=== PATIENT | female | born 1960 | race Caucasian/White ===

== ENCOUNTER 2016-11-11 11:48 | Emergency (ER) | payer OTHER ==
--- NOTE | 2016-11-11 17:40 | ED CLINICAL REPORT ---
Clinical Report - Physicians/Mid Levels [facility] [address] [place] [address] 11/11/2016 11:51 Patient: JESENIA TRAORE Arrived- By private vehicle. Historian- patient. HISTORY OF PRESENT ILLNESS Chief Complaint: BACK PAIN. Onset- the past several days and it is still present (staying the same). It was abrupt in onset and has been intermittent but is not gone now. Modifying factors. (worsened by movement. Better with rest). It is described as being moderate in degree and in the area of the left upper lumbar spine and right upper lumbar spine. The quality is noted to be sharp. No radiation. No bladder dysfunction, bowel dysfunction, sensory loss or motor loss. Additional history - reports hematuria. No history of IV drug use. No history of cancer. No urinary retention. No fever. Patient denies an injury but injury to the head. No other injury. Similar symptoms previously: Many times. Recent medical care: The patient was seen recently by a health care provider (Outside facility). ( reports diagnosis of kidney stones in the past). REVIEW OF SYSTEMS No fever. All systems otherwise negative, except as recorded above. PAST HISTORY See nurses notes. Medications: None. Allergies: None. SOCIAL HISTORY Never smoker. History of occasional drug use: marijuana. No alcohol use. No recent travel. Is a local resident. FAMILY HISTORY (siblings with polycystic kidney disease). ADDITIONAL NOTES The nursing notes have been reviewed. PHYSICAL EXAM Vital Signs: 11/11/2016 12:08 BP: 159/78. HR: 83. RR: 18. O2 saturation: 100%. Temp: 98.2 F. Pain level now: 7/10. Hypertensive. Oxygen saturation normal. Appearance: Alert. No acute distress. HEENT: Normal external inspection. Eyes: Pupils equal, round and reactive to light. ENT: Ears normal. Pharynx normal. Neck: Normal inspection. Neck nontender. Painless ROM. No vertebral tenderness. No meningeal signs. CVS: Heart sounds normal. Pulses normal. Respiratory: No respiratory distress. Breath sounds normal. Abdomen: No visible injury. Soft and nontender. Bowel sounds normal. No organomegaly. No mass. Back: Normal inspection. No tenderness. Painless ROM. Mild soft tissue tenderness in the right upper and left upper lumbar area. No vertebral point tenderness or CVA tenderness. Skin: Skin warm and dry. Normal skin color. No rash. Normal skin turgor. Extremities: Extremities exhibit normal ROM. Extremities nontender. Neuro: Oriented X 3. Mood/affect normal. No motor deficit. LABS, X-RAYS, AND EKG CT Abdomen - Pelvis: PROCEDURE: CT ABDOMEN/PELVIS W/O CONTRAST INDICATION: FLANK PAIN MID BACK TECHNIQUE: Axial CT images were obtained through the abdomen and pelvis without IV contrast. Coronal and sagittal reformations were created. COMPARISON: None. FINDINGS: There are innumerable cysts of varying sizes arising from each kidney, both intraparenchymal and exophytic. Cysts demonstrate varying densities. The largest on the right kidney measures 5.0 cm. The largest on the left kidney measures about 2.6 cm. There are occasional parenchymal calcifications scattered in each kidney, likely associated with cyst neumann. There is a 4 mm nonobstructing right lower pole collecting system calcification. No other definite collecting system calcifications are present. No hydronephrosis or hydroureter. No perinephric inflammatory changes. Both lobes of the liver also demonstrate innumerable cysts of varying sizes, the largest is central within the right lobe and measures about 2.9 cm. Clear lung bases. Normal sized heart. No hiatal hernia. The unenhanced appearance of the gallbladder, adrenal glands, pancreas and spleen is normal. The abdominal aorta is normal in its caliber with mild atherosclerosis. There are no suspicious calcifications, retroperitoneal adenopathy or masses. The stomach, upper bowel loops, and mesentery are normal. Intact anterior abdominal wall. No free fluid or inflammation. The unenhanced appearance of the uterus, ovaries, urinary bladder, pelvic vessels, and pelvic bowel loops is normal. Normal appendix. No suspicious calcifications, free pelvic fluid or mass. There is slight superior endplate compression and sclerosis involving T11, T12, L1, and L2. Mild wedge deformity of T11 and T12. Moderate degenerative disc height loss and vacuum phenomenon L4-5. IMPRESSION: 1. 4 mm nonobstructing right intrarenal lower pole calculus. 2. Polycystic kidney and liver disease. 3. 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 Study type: renal stone evaluation. Abdomen - pelvic CT performed without contrast. The study was independently viewed by me, interpreted by the radiologist and discussed with the radiologist. Laboratory Tests: UA-Culture if indicated: (VICTOR MANUEL: 11/11/2016 12:07) ( [id number] 11/11/2016 12:47) Final results Test Result Flag Units (Reference) URINE COLOR YELLOW URINE APPEARANCE CLEAR URINE GLUCOSE NEGATIVE (NEGATIVE) URINE BILIRUBIN NEGATIVE (NEGATIVE) URINE KETONE NEGATIVE (NEGATIVE) URINE SPECIFIC GRAVITY <= 1.005 L (1.010-1.030) URINE PH 5.5 (5.0-8.0) URINE PROTEIN NEGATIVE (NEGATIVE) URINE UROBILINOGEN 0.2 EU/dL (0.2-1.0) URINE NITRITE NEGATIVE (NEGATIVE) URINE BLOOD NEGATIVE (NEGATIVE) URINE LEUK ESTERASE NEGATIVE (NEGATIVE) URINE RBC 1-3 rbc/hpf (0-1) URINE WBC NONE SEEN wbc/hpf (0-1) URINE EPITHELIAL CELLS 0-1 EPI/hpf (0-5) URINE BACTERIA NONE SEEN (NONE SEEN) URINE COMMENT CULT NOT INDICATED URINE CULTURES ARE SET-UP BASED ON THE FOLLOWING CRITERIA:POSITIVE NITRITEPOSITIVE LEUKOCYTE ESTERASEGREATER THAN 10 WHITE BLOOD CELLSMODERATE (2+) OR GREATER BACTERIA . PROGRESS AND PROCEDURES Course of Care: the patient is a pleasant 56-year-old femalewith no prior past medical history presenting for evaluation of lower back pain primarily in the upper lumbar region. The patient appears nontoxic and is in no acute distress. The patient reports a history of kidney stones. Because of the patient's history, we will order CT scan of the patientfor evaluation of stones. Symptoms appear to be consistent with this. Discussed the patient workup and plan of care. Patient is agreeable to workup and treatment. Workup was markable for polycystic kidney disease. Patient does have a 4 mm nonobstructing right intrarenal lower pole calculus. This does not appear to be the source of the patient's pain. Patient also is noted to have mild compression fractures of T11 and T12 Do not appear acute. I discussed with the patient possibility of these entities causing the patient's pain Had long discussion with the patient in regards to polycystic kidney disease. 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 Also recommended patient follow up with her primary care Dr. Do not feel patient needs to be admitted to the hospital require further emergency department workup/evaluation. No other abnormalities noted. Kidney function is noted be adequate. Patient is nontoxic and is in no acute distress. Do not feel this is dissecting aortic aneurysm oracute appendicitis. Patient does not have a surgical abdomen however does need close follow-up for her polycystic kidney disease. Disposition: Discharged. Condition: good. CLINICAL IMPRESSION 11/11/2016 16:09 BP: 156/82. HR: 60. RR: 14. O2 saturation: 100%. Temp: 98.1 F. Hypertensive. Oxygen saturation normal. Essential hypertension. Acute lumbar back pain. (acute). polycystic kidney disease. INSTRUCTIONS Warnings: GENERAL WARNINGS: Return or contact your physician immediately if your condition worsens or changes unexpectedly, if not improving as expected, or if other problems arise. SPECIFICALLY, return if you develop weakness, numbness, tingling, pain or incontinence. Prescription Medications: Percocet 5 mg/325 mg: take 1-2 tablets orally every 6 hours as needed for pain. Dispense fifteen (15). No refill. Substitution is permissible. Follow-up: Return to the emergency department as needed. Follow up with your doctor in three days. Reason for referral: recheck today's concerns. Summary of care provided to patient via paper. Screening today revealed the patient's blood pressure to be in the normal range. The patient should follow up with a primary care provider for blood pressure management. Understanding of the discharge instructions verbalized by patient. (Electronically signed by Layo Vuong Dr. 11/15/2016 3:24) Addenda for JESENIA TRAORE VisitID: [id number] Date: 11/11/2016 11/11/2016 19:19 Pt called stating that she was discharged home with IV. Pt felt comfortable removing IV at home. IV was removed while on phone with Mónica. Pt reported the IV was removed successfully. Pt states dressing was applied and there was no bleeding. Pt was advised to leave dressing on until tomorrow morning. (Electronically signed by Elizabeth Grigsby R.N. 11/11/2016 19:19)
--- NOTE | 2016-11-11 17:40 | ED ORDER SUMMARY ---
..... Patient: JESENIA TRAORE OrderSheet [facility] VisitID: [id number] [place] [address] 56y, F Registration Date/Time: 11/11/2016 ORDER SHEET Weight: 63.5 kg (stated) Allergies: None GENERAL ORDERS: UA-Culture if indicated Urgent (12:30 11/11/2016 Benigno R.NCaesar per protocol) (Ack 12:33 VAHIDoerpatricia) (12:33 VAHIDoerpatricia) CT Abd/Pel wo Cont Urgent (12:53 11/11/2016 Rowan Torres) (Ack 13:18 VAHIDoeteo) (16:09 JBmiley R.N.) CBC w Diff Urgent (12:53 11/11/2016 Rowan Torres) (13:04 JBmiley R.N.) CMP Urgent (12:53 11/11/2016 Rowan Torres) (13:04 JBbelemdley R.N.) UA-Culture if indicated Urgent (12:53 11/11/2016 Rowan Torres) (Cancelled: Duplicate Order13:05 Naseem R.NCaesar) Lipase Urgent (12:53 11/11/2016 Rowan Torres) (13:04 JBmiley R.N.) Pulse oximeter (12:53 11/11/2016 Rowan Torres) (Ack 12:54 JBoardley R.N.) (13:04 Concettay R.N.) MEDICATION ORDERS: IV FLUIDS: IV NS : initial bolus 1000 mL (1000 mL/hr), then none - for X1 (NOW) (12:53 11/11/2016 Rowan Torres) (Ack 12:54 SANGITAoardley R.NCaesar) (13:05 Peacedleclarita R.N.) Morphine IV 4 mg (once now, may repeat x 1 in 15 minutes for no change in pain. ) (14:40 11/11/2016 Rowan Torres) (Ack 14:41 JBoardley R.N.) (14:52 Benigno RCaesarNCaesar) ORDER SHEET NOTES: [Electronically signed by Derik Martinez R.N. (11/11/2016)] [Electronically signed by Layo Vuong Dr. (:11/15/2016)] [Electronically locked/signed by Derik Martinez R.N. (11/11/2016)]
--- NOTE | 2016-11-11 17:40 | ED NURSING NOTES ---
Clinical Report - Nurses [facility] [place] [address] 11/11/2016 11:51 Patient: JESENIA TRAORE TRIAGE Triage time 11:58. Acuity: LEVEL 3. --12:03 Gris Joshua R.N. Triage time 12:08. Acuity: LEVEL 3. Chief Complaint: FLANK PAIN (in middle of back). 12:20 11/11/16. Alert. No acute distress. SEPSIS SCREEN: Sepsis Screen: negative. HOMERO COMA SCORE: Homero Coma Scale: 15- eyes open spontaneously (4); best verbal response- oriented x 4 (5); best motor response- obeys commands (6). --12:20 Elizabeth Grigsby R.N. 12:08 11/11/16. BP: 159/78. HR: 83. RR: 18. O2 saturation: 100% on room air. Temp: 98.2 F. Pain level now: 7/10. Patient is smiling. --12:20 Elizabeth Grigsby R.N. Weight: 63.5 kg stated. Height/Length: 57 inches Per Patient. BMI: 30.3. --12:33 Elizabeth Grigsby R.N. Medications None. --17:58 Elizabeth Grigsby R.N. Allergies None. --12:10 Elizabeth Grigsby R.N. History Arrived by private vehicle. Historian: patient. Accompanied by family. --12:03 Gris Joshua R.N. Arrived by private vehicle. Historian: patient. Accompanied by family. Onset. (pt states she has had constant pain since she was diagnosed with kidney stones in August,. she states the pain has worsened in the past 2 days. pt states she is unsure whether the kidney stones were passed.). She has had hematuria (5-6 days ago). Treatment ENVIRONMENTAL STUDIES DEPARTMENT CHAIR: Applied ice. Recently seen at another facility; seen for similar symptoms; CT done. (pt states she was taking naproxen as prescribed, but stopped because "it wasn't helping the pain and was making my stools hard"). PAST MEDICAL HX: Immunizations: up-to-date. Denies current . SOCIAL HX: Never smoker. History of weekly drug use: marijuana. Recently used drugs today. No alcohol use. FALL RISK ASSESSMENT: Fall risk assessment completed. No fall risk identified. NUTRITIONAL RISK ASSESSMENT: The nutritional risk assessment revealed no deficiencies. FUNCTIONAL ASSESSMENT: Functional assessment: no impairments noted. LEARNING NEEDS ASSESSMENT: The learning needs assessment revealed no barriers. SKIN INTEGRITY ASSESSMENT: Skin integrity risk assessment completed. No skin integrity risk identified. --12:20 Elizabeth Grigsby R.N. PROBLEMS: None. --12:11 Elizabeth Grigsby R.N. ADDITIONAL SURGERIES: None. --12:11 Elizabeth Grigsby R.N. Assessment The patient states feels worse (pain has worsened in the last 2 days). --12:20 Elizabeth Grigsby R.N. Interventions ID band on patient. To room. --12:03 Gris Joshua R.N. ID band on patient. To treatment room. --12:20 Elizabeth Grigsby R.N. PHYSICAL ASSESSMENT 12:22 11/11/16. Ambulatory to room. GENERAL / NEURO / PSYCH: Alert. Oriented X 4. Appears in no acute distress. RESPIRATORY: Respirations not labored. GI / : Abdomen soft and nontender. Bowel sounds within normal limits. No vaginal bleeding. No vaginal discharge. SKIN: Skin is warm and dry. --12:22 Elizabeth Grigsby R.N. 12:36 11/11/16. BACK: Vertebral point tenderness over the thoracic spine. ( pt states she had compression fracture at "T12" in August,). --12:37 Elizabeth Grigsby R.N. NURSING PROGRESS NOTES 12:23 11/11/16. Patient gowned. Head of bed elevated. Two patient identifiers checked. Call light placed in reach. Side rails up x 1. Bed placed in lowest position. Brakes of bed on. Patient ready for evaluation- chart flagged and notification provided. --12:23 Elizabeth Grigsby R.N. 12:29 11/11/16. Clean catch urine collected; sample sent to lab for urinalysis. (sent by Gris). --12:29 Elizabeth Grigsby R.N. 13:05 11/11/2016 Site #1 started via IV in the left antecubital space with an 20g angiocath, with aseptic technique and good blood return; one attempt. Blood drawn: rainbow set. Labeled in the presence of the patient and sent to the lab. Saline lock flushed with 10 mL saline. --13:05 Derik Martinez R.N. 13:05 11/11/2016 Started bag #1 1000 mL IV Fluids IV NS (Saline); at 1000 mL/hr over 1 hour(s) via site #1. Allergies verified and confirmed 5 rights. Completed per protocol. --13:05 Derik Martinez R.N. 13:05 11/11/16. BP: 140/73. HR: 72. RR: 18. O2 saturation: 99% on room air. --13:07 Derik Martinez R.N. 13:11/11/16. --13:07 Derik Martinez R.N. 13:11/11/16. Pulse oximeter placed on patient; monitor alarms on. --13:07 Derik Martinez R.N. 13:11/11/16. Patient and family informed about reason for wait and about plan of care. --13:07 Derik Martinez R.N. 13:07 11/11/16. Patient waiting for CT to be done. --13:07 Derik Martinez R.N. 12:45. ( After Pt's SO reported Pt asking for an ice pack, tech gave Pt ice pack for pain relief). --13:31 Emily Degroot 14:03 11/11/2016 IV Fluids IV NS Discontinued: completed. Total amount infused: 1000 mL. IV patency established. IV site checked: no pain, redness, or swelling. IV flushed thoroughly. --14:08 Elizabeth Grigsby R.N. 14:04 11/11/16. Two patient identifiers checked. Call light placed in reach. Side rails up x 2. Bed placed in lowest position. Brakes of bed on. Patient informed about reason for wait and about plan of care. --14:04 Elizabeth Grigsby R.N. 14:48 11/11/16. Patient and family informed about reason for wait and about plan of care. --14:49 Derik Martinez R.N. 14:52 11/11/2016 Morphine IVP 4 mg given over 1 minute(s) via site #1. Allergies verified, confirmed 5 rights and sedative warning given to the patient. IV patency established. IV site checked: no pain, redness, or swelling. IV flushed thoroughly pre- and post-medication administration. IVP given by RN. --14:52 Elizabeth Grigsby R.N. 14:48 11/11/16. Pain level now: 04/29. --14:54 Elizabeth Grigsby R.N. 15:35 11/11/16. Reassessment after medication administered (pt states flank pain has subsided.). She reports no complaints and she has had no adverse reaction. --15:35 Elizabeth Grigsby R.N. 15:30 11/11/16. BP: 158/73 (regular adult cuff) taken on the right arm, via an automated monitor, while sitting. HR: 59. RR: 17. O2 saturation: 99%. Pain level now: 010. --15:35 Elizabeth Grigsby R.N. 03:50. Patient transported to CT. Patient and family informed about reason for wait (CT delayed due to problem with order in [employer] --15:58 Elizabeth Grigsby R.N. 14:48. --14:54 Elizabeth Grigsby R.N. 16:11 11/11/16. --16:11 Derik Martinez R.N. 16:09 11/11/16. BP: 156/82. HR: 60. RR: 14. O2 saturation: 100% on room air. Temp: 98.1 F (oral). --16:11 Derik Martinez R.N. 16:11 11/11/16. --16:11 Derik Martinez R.N. 16:11 11/11/16. Pain level now: 10/30. --16:11 Derik Martinez R.N. 16:11 11/11/16. Patient and family informed about reason for wait and about plan of care. --16:11 Derik Martinez R.N. 16:11 11/11/16. Patient waiting for CT result. --16:11 Derik Martinez R.N. 16:49 11/11/16. Call light placed in reach. Side rails up x 2. Bed placed in lowest position. Brakes of bed on. Patient and family informed about reason for wait and about plan of care. --16:49 Elizabeth Grigsby R.N. DISPOSITION / DISCHARGE 17:50. Departure time: 17:50. Discharge instructions provided and reviewed with the patient and spouse. Reviewed warnings. Reviewed medication(s). Treatments reviewed. Activity restrictions reviewed. Patient and spouse verbalized understanding. Written instructions provided in Georgian. The patient was discharged by the physician. She was discharged home and accompanied by spouse. She left the Emergency Department ambulatory and via private vehicle. Spouse driving. --17:57 Elizabeth Grigsby R.N. 17:53 11/11/16. BP: 173/103. HR: 73. RR: 19. O2 saturation: 99%. Temp: unable to obtain. Pain level now: 10/30. --17:57 Elizabeth Grigsby R.N. Locked/Released at 11/11/2016 19:27 by Derik Martinez R.N.
--- NOTE | 2016-11-11 17:40 | ED ORDER SUMMARY ---
..... Patient: JESENIA TRAORE OrderSheet [facility] VisitID: [id number] [place] [address] 56y, F Registration Date/Time: 11/11/2016 ORDER SHEET Weight: 63.5 kg (stated) Allergies: None GENERAL ORDERS: UA-Culture if indicated Urgent (12:30 11/11/2016 Benigno R.NCaesar per protocol) (Ack 12:33 VAHIDoerpatricia) (12:33 VAHIDoerpatricia) CT Abd/Pel wo Cont Urgent (12:53 11/11/2016 Rowan Torres) (Ack 13:18 VAHIDoeteo) (16:09 JBmiley R.N.) CBC w Diff Urgent (12:53 11/11/2016 Rowan Torres) (13:04 JBmiley R.N.) CMP Urgent (12:53 11/11/2016 Rowan Torres) (13:04 JBbelemdley R.N.) UA-Culture if indicated Urgent (12:53 11/11/2016 Rowan Torres) (Cancelled: Duplicate Order13:05 Naseem R.NCaesar) Lipase Urgent (12:53 11/11/2016 Rowan Torres) (13:04 JBmiley R.N.) Pulse oximeter (12:53 11/11/2016 Rowan Torres) (Ack 12:54 JBoardley R.N.) (13:04 Concettay R.N.) MEDICATION ORDERS: IV FLUIDS: IV NS : initial bolus 1000 mL (1000 mL/hr), then none - for X1 (NOW) (12:53 11/11/2016 Rowan Torres) (Ack 12:54 SANGITAoardley R.NCaesar) (13:05 Peacedleclarita R.N.) Morphine IV 4 mg (once now, may repeat x 1 in 15 minutes for no change in pain. ) (14:40 11/11/2016 Rowan Torres) (Ack 14:41 JBoardley R.N.) (14:52 Benigno RCaesarNCaesar) ORDER SHEET NOTES: [Electronically signed by Derik Martinez R.N. (11/11/2016)] [Electronically signed by Layo Vuong Dr. (:11/15/2016)] [Electronically locked/signed by Derik Martinez R.N. (11/11/2016)]
--- NOTE | 2016-11-12 16:03 | DIAGNOSTIC IMAGING REPORT ---
PROCEDURE: CT ABDOMEN/PELVIS W/O CONTRAST INDICATION: FLANK PAIN MID BACK TECHNIQUE: Axial CT images were obtained through the abdomen and pelvis without IV contrast. Coronal and sagittal reformations were created. COMPARISON: None. FINDINGS: There are innumerable cysts of varying sizes arising from each kidney, both intraparenchymal and exophytic. Cysts demonstrate varying densities. The largest on the right kidney measures 5.0 cm. The largest on the left kidney measures about 2.6 cm. There are occasional parenchymal calcifications scattered in each kidney, likely associated with cyst neumann. There is a 4 mm nonobstructing right lower pole collecting system calcification. No other definite collecting system calcifications are present. No hydronephrosis or hydroureter. No perinephric inflammatory changes. Both lobes of the liver also demonstrate innumerable cysts of varying sizes, the largest is central within the right lobe and measures about 2.9 cm. Clear lung bases. Normal sized heart. No hiatal hernia. The unenhanced appearance of the gallbladder, adrenal glands, pancreas and spleen is normal. The abdominal aorta is normal in its caliber with mild atherosclerosis. There are no suspicious calcifications, retroperitoneal adenopathy or masses. The stomach, upper bowel loops, and mesentery are normal. Intact anterior abdominal wall. No free fluid or inflammation. The unenhanced appearance of the uterus, ovaries, urinary bladder, pelvic vessels, and pelvic bowel loops is normal. Normal appendix. No suspicious calcifications, free pelvic fluid or mass. There is slight superior endplate compression and sclerosis involving T11, T12, L1, and L2. Mild wedge deformity of T11 and T12. Moderate degenerative disc height loss and vacuum phenomenon L4-5. IMPRESSION: 1. 4 mm nonobstructing right intrarenal lower pole calculus. 2. Polycystic kidney and liver disease. 3. 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 4. Discussed with Dr. Vuong in the emergency room. All CT scans at this facility use dose modulation, iterative reconstruction, and/or weight-based dosing when appropriate to reduce radiation dose to as low as reasonably achievable.
--- NOTE | 2016-11-15 03:24 | ED DISCHARGE INSTRUCTIONS ---
Patient: JESENIA TRAORE General Instructions [facility] VisitID: [id number] [place] [address] 56y, F Registration Date/Time: 11/11/2016 11/11/2016 16:09 BP: 156/82. HR: 60. RR: 14. O2 saturation: 100%. Temp: 98.1 F. Hypertensive. Oxygen saturation normal. Essential hypertension. Acute lumbar back pain. (acute). polycystic kidney disease. INSTRUCTIONS Warnings: GENERAL WARNINGS: Return or contact your physician immediately if your condition worsens or changes unexpectedly, if not improving as expected, or if other problems arise. SPECIFICALLY, return if you develop weakness, numbness, tingling, pain or incontinence. Prescription Medications: Percocet 5 mg/325 mg: take 1-2 tablets orally every 6 hours as needed for pain. Dispense fifteen (15). No refill. Substitution is permissible. Follow-up: Return to the emergency department as needed. Follow up with your doctor in three days. Reason for referral: recheck today's concerns. Summary of care provided to patient via paper. Screening today revealed the patient's blood pressure to be in the normal range. The patient should follow up with a primary care provider for blood pressure management. Understanding of the discharge instructions verbalized by patient. ADDITIONAL INFORMATION Back Pain [Acute Or Chronic] Back pain is usually caused by an injury to the muscles or ligaments of the spine. Sometimes the disks that separate each bone in the spine may bulge and cause pain by pressing on a nearby nerve. Back pain may also appear after a sudden twisting/bending force (such as in a car accident), after a simple awkward movement, or lifting something heavy with poor body positioning. In either case, muscle spasm is often present and adds to the pain. Acute back pain usually gets better in one to two weeks. Back pain related to disk disease, arthritis in the spinal joints or spinal stenosis (narrowing of the spinal canal) can become chronic and last for months or years. Unless you had a physical injury (for example, a car accident or fall) X-rays are usually not ordered for the initial evaluation of back pain. If pain continues and does not respond to medical treatment, x-rays and other tests may be performed at a later time. Home Care: You may need to stay in bed the first few days. But, as soon as possible, begin sitting or walking to avoid problems with prolonged bed rest (muscle weakness, worsening back stiffness and pain, blood clots in the legs). When in bed, try to find a position of comfort. A firm mattress is best. Try lying flat on your back with pillows under your knees. You can also try lying on your side with your knees bent up towards your chest and a pillow between your knees. Avoid prolonged sitting. This puts more stress on the lower back than standing or walking. During the first two days after injury, apply an ICE PACK to the painful area for 20 minutes every 2-4 hours. This will reduce swelling and pain. HEAT (hot shower, hot bath or heating pad) works well for muscle spasm. You can start with ice, then switch to heat after two days. Some patients feel best alternating ice and heat treatments. Use the one method that feels the best to you. You may use acetaminophen (Tylenol) or ibuprofen (Motrin, Advil) to control pain, unless another pain medicine was prescribed. [NOTE: If you have chronic liver or kidney disease or ever had a stomach ulcer or GI bleeding, talk with your doctor before using these medicines.] Be aware of safe lifting methods and do not lift anything over 15 pounds until all the pain is gone. Follow Up with your doctor or this facility if your symptoms do not start to improve after one week. Physical therapy may be needed. [NOTE: If X-rays were taken, they will be reviewed by a radiologist. You will be notified of any new findings that may affect your care.] Get Prompt Medical Attention if any of the following occur: Pain becomes worse or spreads to your legs Weakness or numbness in one or both legs Loss of bowel or bladder control Numbness in the groin or genital area High Blood Pressure -- To Be Confirmed [No Tx] Your blood pressure was higher today than normal. Sometimes anxiety or pain can cause a temporary rise in blood pressure that later returns to normal. If your blood pressure is high on one measurement, this does not mean that you have hypertension (a chronic illness). However, you must have your blood pressure measured again within the next few days to find out if its still high. A normal blood pressure is 120/80 or less. The first (top) number is the "systolic" pressure. The second (bottom) number is the "diastolic" pressure. Hypertension exists when either the top number is 140 or higher, OR the bottom number is 90 or higher on repeated measurements. Blood pressure in the range of 120-140 (systolic) or 80-89 (diastolic) is considered "pre-hypertension". This means your are at risk for getting hypertension. You should have regular blood pressure checks to be sure your blood pressure is not rising. Home Care: Measure your blood pressure on 3 different days and write down the results. This can be done at your doctor's office or this facility. Some pharmacies and grocery stores offer automated blood pressure machines for your use. Follow Up: If your blood pressure is "high" (over 120/80) on 2 out of 3 days, you will need to follow up with your doctor for further evaluation and treatment. DO NOT PUT THIS OFF! Untreated high blood pressure increases the risk for heart attack, also known as acute myocardial infarction, or AMI, and stroke. It is a treatable condition. Get Prompt Medical Attention if any of the following occur: Chest pain or shortness of breath Severe headache Throbbing or rushing sound in the ears Nosebleed Sudden severe abdominal pain Extreme drowsiness, confusion or fainting Dizziness or vertigo (dizziness with spinning sensation) Weakness of an arm or leg or one side of the face Difficulty with speech or vision Oxycodone Hydrochloride, Acetaminophen Oral tablet What is this medicine? ACETAMINOPHEN; OXYCODONE (a set a YONATAN debora fen; ox i KOE done) is a pain reliever. It is used to treat mild to moderate pain. How should I use this medicine? Take this medicine by mouth with a full glass of water. Follow the directions on the prescription label. Take your medicine at regular intervals. Do not take your medicine more often than directed. Talk to your automatic packer operator regarding the use of this medicine in children. Special care may be needed. Patients over 65 years old may have a stronger reaction and need a smaller dose. What side effects may I notice from receiving this medicine? Side effects that you should report to your doctor or health career placement specialist as soon as possible: allergic reactions like skin rash, itching or hives, swelling of the face, lips, or tongue breathing difficulties, wheezing confusion light headedness or fainting spells severe stomach pain yellowing of the skin or the whites of the eyes Side effects that usually do not require medical attention (report to your doctor or health career placement specialist if they continue or are bothersome): dizziness drowsiness nausea vomiting What may interact with this medicine? alcohol antihistamines barbiturates like amobarbital, butalbital, butabarbital, methohexital, pentobarbital, phenobarbital, thiopental, and secobarbital benztropine drugs for bladder problems like solifenacin, trospium, oxybutynin, tolterodine, hyoscyamine, and methscopolamine drugs for breathing problems like ipratropium and tiotropium drugs for certain stomach or intestine problems like propantheline, homatropine methylbromide, glycopyrrolate, atropine, belladonna, and dicyclomine general anesthetics like etomidate, ketamine, nitrous oxide, propofol, desflurane, enflurane, halothane, isoflurane, and sevoflurane medicines for depression, anxiety, or psychotic disturbances medicines for sleep muscle relaxants naltrexone narcotic medicines (opiates) for pain phenothiazines like perphenazine, thioridazine, chlorpromazine, mesoridazine, fluphenazine, prochlorperazine, promazine, and trifluoperazine scopolamine tramadol trihexyphenidyl What if I miss a dose? If you miss a dose, take it as soon as you can. If it is almost time for your next dose, take only that dose. Do not take double or extra doses. Where should I keep my medicine? Keep out of the reach of children. This medicine can be abused. Keep your medicine in a safe place to protect it from theft. Do not share this medicine with anyone. Selling or giving away this medicine is dangerous and against the law. Store at room temperature between 20 and 25 degrees C (68 and 77 degrees F). Keep container tightly closed. Protect from light. This medicine may cause accidental overdose and if it is taken by other adults, children, or pets. Flush any unused medicine down the toilet to reduce the chance of harm. Do not use the medicine after the expiration date. What should I tell my health care provider before I take this medicine? They need to know if you have any of these conditions: brain tumor Crohn's disease, inflammatory bowel disease, or ulcerative colitis drink more than 3 alcohol containing drinks per day drug abuse or addiction head injury heart or circulation problems kidney disease or problems going to the bathroom liver disease lung disease, asthma, or breathing problems an unusual or allergic reaction to acetaminophen, oxycodone, other opioid analgesics, other medicines, foods, dyes, or preservatives or trying to get breast-feeding What should I watch for while using this medicine? Tell your doctor or health career placement specialist if your pain does not go away, if it gets worse, or if you have new or a different type of pain. You may develop tolerance to the medicine. Tolerance means that you will need a higher dose of the medication for pain relief. Tolerance is normal and is expected if you take this medicine for a long time. Do not suddenly stop taking your medicine because you may develop a severe reaction. Your body becomes used to the medicine. This does NOT mean you are addicted. Addiction is a behavior related to getting and using a drug for a non-medical reason. If you have pain, you have a medical reason to take pain medicine. Your doctor will tell you how much medicine to take. If your doctor wants you to stop the medicine, the dose will be slowly lowered over time to avoid any side effects. You may get drowsy or dizzy. Do not drive, use machinery, or do anything that needs mental alertness until you know how this medicine affects you. Do not stand or sit up quickly, especially if you are an older patient. This reduces the risk of dizzy or fainting spells. Alcohol may interfere with the effect of this medicine. Avoid alcoholic drinks. There are different types of narcotic medicines (opiates) for pain. If you take more than one type at the same time, you may have more side effects. Give your health care provider a list of all medicines you use. Your doctor will tell you how much medicine to take. Do not take more medicine than directed. Call emergency for help if you have problems breathing. The medicine will cause constipation. Try to have a bowel movement at least every 2 to 3 days. If you do not have a bowel movement for 3 days, call your doctor or health career placement specialist. Do not take Tylenol (acetaminophen) or medicines that have acetaminophen with this medicine. Too much acetaminophen can be very dangerous. Many nonprescription medicines contain acetaminophen. Always read the labels carefully to avoid taking more acetaminophen. You have been given the following additional information: Back Pain (Acute Or Chronic) Hypertension, To Be Confirmed Oxycodone Hydrochloride, Acetaminophen Oral tablet (Electronically signed by Layo Vuong Dr. 11/15/2016 3:24)
--- NOTE | 2016-11-15 03:24 | ED MED RECONCILIATION SUMMARY ---
Patient: JESENIA TRAORE Medication Reconciliation Report [facility] VisitID: [id number] [address] [place] [address] 56y, F Registration Date/Time: 11/11/2016 Weight: 63.5 kg Height/Length: 57 in. BMI: 30.3 ALLERGIES: None The patient's Home Medications are listed below: NONE. The source(s) of the original Home Medication information: Not obtained. The following Medications were given to the patient in the Emergency Department: IV NS IV Fluids bolus 0, then 1000 mL/hr, administered: 11/11/2016 1:05:00 PM Morphine [IVP] IVP 4 mg, administered: 11/11/2016 2:52:00 PM The following Medications were prescribed to the patient: Percocet 5 mg/325 mg: take 1-2 tablets orally every 6 hours as needed for pain. Dispense fifteen (15). No refill. Substitution is permissible. -- Layo Vuong Dr.
--- NOTE | 2016-11-15 03:24 | ED MAR SUMMARY ---
..... Medication Administration Record [facility] [address] [place] [address] Patient: JESENIA TRAORE Visit ID: [id number] 56y, F Weight: 63.5 kg Height/Length: 57 in BMI: 30.3 ALLERGIES: None Start 13:05 11/11/2016 Derik Martinez R.N., Stop 14:03 11/11/2016 Elizabeth Grigsby R.N. Medication Administered: IV NS (SALINE), Dose: IV Fluids over 1 hour(s), Rate: 1000 mL/hr, Dispensed: 1000 mL bag, Site: #1 left AC. Medication Ordered: IV NS : initial bolus 1000 mL (1000 mL/hr), then none - for X1 (NOW). Given 14:52 11/11/2016 Elizabeth Grigsby RRobin Medication Administered: MORPHINE [IVP], Dose: 4 mg IVP over 1 minute(s), Site: #1 left AC. Medication Ordered: Morphine IV 4 mg (once now, may repeat x 1 in 15 minutes for no change in pain. ).
--- NOTE | 2016-11-15 03:24 | ED MAR SUMMARY ---
..... Medication Administration Record [facility] [address] [place] [address] Patient: JESENIA TRAORE Visit ID: [id number] 56y, F Weight: 63.5 kg Height/Length: 57 in BMI: 30.3 ALLERGIES: None Start 13:05 11/11/2016 Derik Martinez R.N., Stop 14:03 11/11/2016 Elizabeth Grigsby R.N. Medication Administered: IV NS (SALINE), Dose: IV Fluids over 1 hour(s), Rate: 1000 mL/hr, Dispensed: 1000 mL bag, Site: #1 left AC. Medication Ordered: IV NS : initial bolus 1000 mL (1000 mL/hr), then none - for X1 (NOW). Given 14:52 11/11/2016 Elizabeth Grigsby RRobin Medication Administered: MORPHINE [IVP], Dose: 4 mg IVP over 1 minute(s), Site: #1 left AC. Medication Ordered: Morphine IV 4 mg (once now, may repeat x 1 in 15 minutes for no change in pain. ).
--- NOTE | 2016-11-15 03:24 | ED MED RECONCILIATION SUMMARY ---
Patient: JESENIA TRAORE Medication Reconciliation Report [facility] VisitID: [id number] [address] [place] [address] 56y, F Registration Date/Time: 11/11/2016 Weight: 63.5 kg Height/Length: 57 in. BMI: 30.3 ALLERGIES: None The patient's Home Medications are listed below: NONE. The source(s) of the original Home Medication information: Not obtained. The following Medications were given to the patient in the Emergency Department: IV NS IV Fluids bolus 0, then 1000 mL/hr, administered: 11/11/2016 1:05:00 PM Morphine [IVP] IVP 4 mg, administered: 11/11/2016 2:52:00 PM The following Medications were prescribed to the patient: Percocet 5 mg/325 mg: take 1-2 tablets orally every 6 hours as needed for pain. Dispense fifteen (15). No refill. Substitution is permissible. -- Layo Vuong Dr.
== END 2016-11-11 17:50 | disposition home or self-care (01) ==
LOC: ED SRH 11:48
DX: M54.5 Low back pain (principal); Q61.3 Polycystic kidney, unspecified; I10 Essential (primary) hypertension
CPT/HCPCS: 90004; 90100; 92235; 95059

== ENCOUNTER 2017-01-10 11:59 | Emergency (ER) | payer OTHER ==
--- NOTE | 2017-01-10 14:31 | ED NURSING NOTES ---
Clinical Report - Nurses [place] [address] [place] [address] 01/10/2017 12:00 Patient: JESENIA TRAORE TRIAGE Triage time 12:06. Acuity: LEVEL 3. Chief Complaint: ABDOMINAL PAIN and NAUSEA and CHILLS. Alert. No acute distress. SEPSIS SCREEN: Sepsis Screen. Negative (no infection suspected/documented). MARSHA COMA SCORE: Roberts Coma Scale: 15- eyes open spontaneously (4); best verbal response- oriented x 4 (5); best motor response- obeys commands (6). --12:17 Alda Hinkle R.N. 12:06 01/10/17. BP: 192/87. HR: 54. RR: 18. O2 saturation: 97%. Temp: 97.5 F. Pain level now 6/10. --12:17 Alda Hinkle R.N. Weight: 63.5 kg stated. Height/Length: 57 inches Per Patient. BMI: 30.3. --12:13 Alda Hinkle R.N. Medications Lisinopril Oral 5 mg, at bedtime. --12:15 Alda Hinkle R.N. Vitamin D Oral. --12:16 Alda Hinkle R.N. Percocet Oral, as needed. --12:16 Alda Hinkle R.N. Allergies No Known Drug Allergy. --12:16 Alda Hinkle R.N. History Arrived by private vehicle. Historian: patient. Accompanied by family. Primary physician (Dr. Quiros). Onset. (1130 today). 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 PAST MEDICAL HX: Immunizations: status is unknown. SOCIAL HX: Smoker- current status unknown. Occasional alcohol use. History of drug use: marijuana. (daily). No recent travel. No infectious disease exposure. No known contact with a sick individual. ABUSE ASSESSMENT: Abuse assessment: The patient was asked "Do you feel safe in your home?" and "Has anyone hurt you or threatened to hurt you?". No report of abuse. NUTRITIONAL RISK ASSESSMENT: The nutritional risk assessment revealed no deficiencies. FUNCTIONAL ASSESSMENT: Functional assessment: no impairments noted. LEARNING NEEDS ASSESSMENT: The learning needs assessment revealed no barriers. --12:17 Alda Hinkle R.N. PROBLEMS: Hypertension. Back Pain. --12:16 Alda Hinkle R.N. Polycystic Kidney. Hypercalcemia. --12:17 Alda Hinkle R.N. Interventions ID band on patient. Transported via wheelchair. --12:17 Alda Hinkle R.N. PHYSICAL ASSESSMENT Ambulatory to room. GENERAL / NEURO / PSYCH: Alert. Appears in no acute distress. HEENT: Mucous membranes are pink. RESPIRATORY: Respirations not labored. CVS: Capillary refill less than 2 seconds. GI / : Abdomen soft. Abdominal tenderness in the lower abdomen. SKIN: Skin is warm and dry. --12:17 Alda Hinkle R.N. NURSING PROGRESS NOTES Patient gowned. Head of bed elevated. Two patient identifiers checked. Call light placed in reach. Side rails up x 2. Bed placed in lowest position. Brakes of bed on. Patient ready for evaluation- chart flagged. --12:17 Alda Hinkle R.N. Patient ID band checked for patient name, birthdate and medical record number: patient confirmed. Instructions provided to collect clean catch urine and patient verbalized understanding. Clean catch urine collected with return of yellow-colored clear urine; sample sent to lab for urinalysis. Specimen labeled in the presence of the patient. --12:17 Alda Hinkle R.N. 12:41 01/10/2017 Zofran ODT (Ondansetron) PO 4 mg given. Allergies verified and confirmed 5 rights. --12:41 Alda Hinkle R.N. 13:14 01/10/17. ( Ultrasound at bedside). --13:14 Shea Nichols R.N. 14:32 01/10/2017 Zofran ODT (Ondansetron) PO 4 mg given. Allergies verified and confirmed 5 rights. --14:32 Nena-Elif Nichols R.N. ( pt out in waiting room, s/o standing at doorway- zofran odt brought to pt "I need to go eat to take my pain meds"). --14:33 Elif Vidal R.N. DISPOSITION / DISCHARGE 14:35 01/10/17. RR: 16. Additional comments: d/c v/s deferred due to pt. refused and wanting to "leave now.". --14:38 Alda Hinkle R.N. 14:35. Departure time: 1435. Condition at departure: stable. No learning barriers present. Discharge instructions provided and reviewed with the patient. Reviewed medication(s) side effects, precautions, dosing and course information. Prescription(s) given to the patient. Reviewed referral to family practice for followup. Patient verbalized understanding. Written instructions provided in Frisian. The patient was discharged home and accompanied by food service aide. She left the Emergency Department ambulatory and via private vehicle. Rn Shift Mgr driving. Medication list reviewed and validated. --14:38 Alda Hinkle R.N. Locked/Released at 01/10/2017 14:38 by Alda Hinkle R.N.
--- NOTE | 2017-01-10 14:31 | ED ORDER SUMMARY ---
..... Patient: JESENIA TRAORE OrderSheet [facility] VisitID: [id number] [place] [address] 56y, F Registration Date/Time: 01/10/2017 ORDER SHEET Weight: 63.5 kg (stated) Allergies: No Known Drug Allergy GENERAL ORDERS: US Abdomen Limited (Yes) (right upper quad tenderness wit nausea/vom today) Urgent (12:33 01/10/2017 ABlanchette PA-C) (Ack 12:35 TBergley) (13:39 TBergley) CBC w Diff Urgent (12:34 01/10/2017 ABlanchette PA-C) (Ack 12:35 TBergley) (13:02 TBergley) CMP Urgent (12:34 01/10/2017 ABlanchette PA-C) (Ack 12:35 TBergley) (13:02 TBergley) Amylase Urgent (12:34 01/10/2017 ABlanchette PA-C) (Ack 12:35 TBergley) (13:02 TBergley) Lipase Urgent (12:34 01/10/2017 ABlanchette PA-C) (Ack 12:35 TBergley) (13:02 TBergley) UA-Culture if indicated Urgent (12:46 01/10/2017 ABlanchette PA-C) (Ack 13:01 TBergley) (13:02 TBergley) US Abdomen Complete (No) Urgent (14:17 01/10/2017 TBergley verbal order read back to ABlanchette PA-C) (14:18 TBergley) MEDICATION ORDERS: Zofran ODT PO 4 mg (NOW) (12:34 01/10/2017 ABlanchette PA-C) (12:41 Christina JohnstonNCaesar) Zofran ODT PO 4 mg (NOW) (14:27 01/10/2017 ABlanchette PA-C) (Ack 14:28 Nikita R.N.) (14:32 KPaksenia-Magdalena R.N.) IV FLUIDS: ORDER SHEET NOTES: [Electronically signed by Alda Hinkle R.N. (14:38 01/10/2017)] [Electronically signed by Yolie Us PA-C (20:43 01/10/2017)] [Electronically locked/signed by Alda Hinkle R.N. (14:38 01/10/2017)]
--- NOTE | 2017-01-10 14:31 | ED ORDER SUMMARY ---
..... Patient: JESENIA TRAORE OrderSheet [facility] VisitID: [id number] [place] [address] 56y, F Registration Date/Time: 01/10/2017 ORDER SHEET Weight: 63.5 kg (stated) Allergies: No Known Drug Allergy GENERAL ORDERS: US Abdomen Limited (Yes) (right upper quad tenderness wit nausea/vom today) Urgent (12:33 01/10/2017 ABlanchette PA-C) (Ack 12:35 TBergley) (13:39 TBergley) CBC w Diff Urgent (12:34 01/10/2017 ABlanchette PA-C) (Ack 12:35 TBergley) (13:02 TBergley) CMP Urgent (12:34 01/10/2017 ABlanchette PA-C) (Ack 12:35 TBergley) (13:02 TBergley) Amylase Urgent (12:34 01/10/2017 ABlanchette PA-C) (Ack 12:35 TBergley) (13:02 TBergley) Lipase Urgent (12:34 01/10/2017 ABlanchette PA-C) (Ack 12:35 TBergley) (13:02 TBergley) UA-Culture if indicated Urgent (12:46 01/10/2017 ABlanchette PA-C) (Ack 13:01 TBergley) (13:02 TBergley) US Abdomen Complete (No) Urgent (14:17 01/10/2017 TBergley verbal order read back to ABlanchette PA-C) (14:18 TBergley) MEDICATION ORDERS: Zofran ODT PO 4 mg (NOW) (12:34 01/10/2017 ABlanchette PA-C) (12:41 Christina JohnstonNCaesar) Zofran ODT PO 4 mg (NOW) (14:27 01/10/2017 ABlanchette PA-C) (Ack 14:28 Nikita R.N.) (14:32 KPaksenia-Magdalena R.N.) IV FLUIDS: ORDER SHEET NOTES: [Electronically signed by Alda Hinkle R.N. (14:38 01/10/2017)] [Electronically signed by Yolie Us PA-C (20:43 01/10/2017)] [Electronically locked/signed by Alda Hinkle R.N. (14:38 01/10/2017)]
--- NOTE | 2017-01-10 14:31 | ED CLINICAL REPORT ---
Clinical Report - Physicians/Mid Levels [facility] [address] [place] [address] 01/10/2017 12:00 Patient: JESENIA KELLOGG Time Seen: 1220. Arrived- By private vehicle. Historian- patient. HISTORY OF PRESENT ILLNESS Chief Complaint: VOMITING. This started just prior to arrival started about an hour and a half ago, nausea, with right upper quad pain and is still present. It was abrupt in onset. The patient has had nausea, mild vomiting. The vomiting has occurred only once and mild, colicky abdominal pain. No diarrhea, black stools or bloody stools. The illness is described as mild. Similar symptoms previously: None. Recent medical care: Not recently seen/assessed. REVIEW OF SYSTEMS No fever, difficulty with urination or dark urine. All systems otherwise negative, except as recorded above. PAST HISTORY See nurses notes. Problems: Polycystic Kidney. Hypercalcemia. Hypertension. Back Pain. None. Medications: Percocet Oral, as needed. Vitamin D Oral. Lisinopril Oral 5 mg, at bedtime. Allergies: No Known Drug Allergy. FAMILY HISTORY Negative. ADDITIONAL NOTES The nursing notes have been reviewed with agreement regarding the chief complaint, HPI, ROS, PMH and patient medications and allergies. PHYSICAL EXAM Vital Signs: 01/10/2017 12:06 BP: 192/87. HR: 54. RR: 18. O2 saturation: 97%. Temp: 97.5 F. Have been reviewed. Hypertensive. Appearance: Alert. Oriented X3. No acute distress. Anxious. Appears to be in pain. Eyes: Pupils equal, round and reactive to light. Eyes normal inspection. ENT: Ears normal. Nose normal. Pharynx normal. Neck: Normal inspection. Neck supple. CVS: Normal heart rate and rhythm. Heart sounds normal. Pulses normal. Respiratory: No respiratory distress. Breath sounds normal. Abdomen: Soft. Mild tenderness in the right upper quadrant and right side of the abdomen with guarding present. Positive Bond's sign. No rebound tenderness or obturator or psoas sign present. The bowel sounds are not abnormal. No distention, mass present or organomegaly. Back: Normal inspection. Skin: Skin warm and dry. Normal skin color. No rash. Normal skin turgor. Extremities: No lower extremity edema. Neuro: Oriented X 3. LABS, X-RAYS, AND EKG Abdominal Sonogram: (Name: Jesenia Kellogg : 1960 MR#: [id number] Ordering Provider: ALESSANDRO HALE Exam(s): US ABDOMEN ULTRASOUND-COMPLETE Date of Exam: 01/10/2017 __ PROCEDURE: US ABDOMEN ULTRASOUND-COMPLETE INDICATION: Right abdominal and flank pain. History of polycystic kidney disease. TECHNIQUE: Zarco scale and color Doppler sonographic images of the abdomen were obtained. COMPARISON: Comparison is made to CT abdomen and pelvis on 11/11/2016. FINDINGS: There are multiple small adherent cholesterol polyps of the gallbladder (3 mm). No evidence of mobile gallstones. Common duct is normal (5 mm). Kidneys are large size right 14.0 cm, left 16.4 cm) with multiple cysts (largest right 5.4 cm, largest left 2.8 cm). There are multiple hepatic cysts (largest 3 cm). Spleen (8 cm), pancreas, aorta, and inferior vena cava are normal. IMPRESSION: 1. Multiple adherent cholesterol polyp of the gallbladder. No evidence of mobile gallstones. 2. Enlargement the kidneys secondary to a polycystic kidney disease. No definite evidence of urinary tract obstruction. 4. Associated multiple hepatic cysts. 5. Otherwise negative abdominal ultrasound. 6. Findings discussed with ANGI Davis. Electronically Final signed by:Trent Donahue MD 01/10/2017 3:56:29 PM Technologist: VINITA). The study was independently viewed by me, interpreted by the radiologist and discussed with the radiologist. Laboratory Tests: UA-Culture if indicated: (VICTOR MANUEL: 01/10/2017 12:15) ( [facility] [place] 01/10/2017 13:06) Final results Test Result Flag Units (Reference) URINE COLOR YELLOW URINE APPEARANCE CLEAR URINE GLUCOSE NEGATIVE (NEGATIVE) URINE BILIRUBIN NEGATIVE (NEGATIVE) URINE KETONE NEGATIVE (NEGATIVE) URINE SPECIFIC GRAVITY 1.025 (1.010-1.030) URINE PH 5.0 (5.0-8.0) URINE PROTEIN NEGATIVE (NEGATIVE) URINE UROBILINOGEN 0.2 EU/dL (0.2-1.0) URINE NITRITE NEGATIVE (NEGATIVE) URINE BLOOD 3+ (NEGATIVE) URINE LEUK ESTERASE NEGATIVE (NEGATIVE) URINE RBC 50-75 rbc/hpf (0-1) URINE WBC 1-3 wbc/hpf (0-1) URINE EPITHELIAL CELLS 0-1 EPI/hpf (0-5) URINE BACTERIA TRACE (<1+) (NONE SEEN) URINE COMMENT CULT NOT INDICATED 1+ MUCOUS0-1 HYALINE CASTS/LPFURINE CULTURES ARE SET-UP BASED ON THE FOLLOWING CRITERIA:POSITIVE NITRITEPOSITIVE LEUKOCYTE ESTERASEGREATER THAN 10 WHITE BLOOD CELLSMODERATE (2+) OR GREATER BACTERIA CBC w Diff: (VICTOR MANUEL: 01/10/2017 12:45) ( [facility] 01/10/2017 12:51) Final results Test Result Flag Units (Reference) WHITE BLOOD COUNT 9.6 K/uL (4.5-11.5) RED BLOOD COUNT 5.31 H M/uL (4.00-5.20) HEMOGLOBIN 14.4 gm/dL (12.0-16.0) HEMATOCRIT 44.0 % (36.0-46.0) MEAN CELL VOLUME 83 fL (80-100) MEAN CORPUSCULAR HGB 27 pg (26-34) MEAN CORPUSCULAR HGB CONC 33 g/dL (31-37) RED CELL DISTRIBUTION WIDTH 13.4 % (11.6-14.8) PLATELET COUNT 282 K/uL (150-400) NEUTROPHIL % 74.0 % (50-75) LYMPH % 19.0 L % (25-40) MONO % 5.5 % (3-14) EOSINOPHIL % 1.2 % (0-4) BASOPHIL % 0.3 % (0-2) CMP: (VICTOR MANUEL: 01/10/2017 12:45) ( MsgRcvd 01/10/2017 13:16) Final results Test Result Flag Units (Reference) GLUCOSE 113 H mg/dL (70-110) BUN 13 mg/dL (7-18) CREATININE 0.9 mg/dL (0.6-1.3) Estimated GFR >60 mL/min Estimated GFR- >60 mL/min Note: Persistent reduction over 3 months in eGFR<60 mL/min/1.73 m2 defines CKD. Patients with eGFR values>=60 mL/min/1.73 m2 may also have CKD if evidence ofpersistent proteinuria. Additional information may be foundat www.kidney.org. SODIUM 140 mmol/L (136-145) POTASSIUM 3.8 mmol/L (3.5-5.1) CHLORIDE 103 mmol/L (98-107) CARBON DIOXIDE 28 mmol/L (21-32) CALCIUM 9.8 mg/dL (8.5-10.1) TOTAL PROTEIN 7.3 g/dL (6.4-8.2) ALBUMIN 3.9 g/dL (3.3-5.0) BILIRUBIN, TOTAL 0.3 mg/dL (0.0-1.0) ALKALINE PHOSPHATASE 64 U/L (46-116) AST (SGOT) 14 L U/L (15-37) ALT (SGPT) 24 U/L (12-78) LIPASE 107 U/L (73-393) AMYLASE 43 U/L (25-115) . PROGRESS AND PROCEDURES Course of Care: Patient is stable. Physical exam findings are improved. Symptoms better. CLINICAL IMPRESSION Subacute rotavirus gastroenteritis. No volume depletion. (polycystic kidney disease, with microscopic hematuria). (gallbladder polyp present on ultrasound). INSTRUCTIONS Rest. Take clear liquids only today. Advance diet as tolerated. No alcohol. Do not smoke. Warnings: Further evaluation is necessary in order to conduct further tests. It is very important to follow up with a physician. GENERAL WARNINGS: Return or contact your physician immediately if your condition worsens or changes unexpectedly, if not improving as expected, or if other problems arise. Your Current Medications: CONTINUE TAKING THE FOLLOWING MEDICATIONS: Lisinopril Oral : 5 mg at bedtime. Percocet Oral : prn. Vitamin D Oral. Prescription Medications: Zofran (orally disintegrating tablets) 4 mg: take 1 orally every 6 hours as needed for nausea. Dispense ten (10). No refill. Follow-up: Follow up with your doctor Wednesday if not better. Reason for referral: right upper quadrant pain, polycystic kidney disease, hematuria. Follow up with a tin tie machine operator automatic- as recommended by your primary care physician- if not better. Understanding of the discharge instructions verbalized by patient and family. (Electronically signed by Alessandro Hale PA-C 01/10/2017 20:43)
--- NOTE | 2017-01-10 14:31 | ED NURSING NOTES ---
Clinical Report - Nurses [facility] [address] [place] [address] 01/10/2017 12:00 Patient: JESENIA TRAORE TRIAGE Triage time 12:06. Acuity: LEVEL 3. Chief Complaint: ABDOMINAL PAIN and NAUSEA and CHILLS. Alert. No acute distress. SEPSIS SCREEN: Sepsis Screen. Negative (no infection suspected/documented). MARSHA COMA SCORE: Greer Coma Scale: 15- eyes open spontaneously (4); best verbal response- oriented x 4 (5); best motor response- obeys commands (6). --12:17 Alda Hinkle R.N. 12:06 01/10/17. BP: 192/87. HR: 54. RR: 18. O2 saturation: 97%. Temp: 97.5 F. Pain level now 6/10. --12:17 Alda Hinkle R.N. Weight: 63.5 kg stated. Height/Length: 57 inches Per Patient. BMI: 30.3. --12:13 Alda Hinkle R.N. Medications Lisinopril Oral 5 mg, at bedtime. --12:15 Alda Hinkle R.N. Vitamin D Oral. --12:16 Alda Hinkle R.N. Percocet Oral, as needed. --12:16 Alda Hinkle R.N. Allergies No Known Drug Allergy. --12:16 Alda Hinkle R.N. History Arrived by private vehicle. Historian: patient. Accompanied by family. Primary physician (Dr. Quiros). Onset. (1130 today). Treatment STILL CLEANER TUBE: None. PAST MEDICAL HX: Immunizations: status is unknown. SOCIAL HX: Smoker- current status unknown. Occasional alcohol use. History of drug use: marijuana. (daily). No recent travel. No infectious disease exposure. No known contact with a sick individual. ABUSE ASSESSMENT: Abuse assessment: The patient was asked "Do you feel safe in your home?" and "Has anyone hurt you or threatened to hurt you?". No report of abuse. NUTRITIONAL RISK ASSESSMENT: The nutritional risk assessment revealed no deficiencies. FUNCTIONAL ASSESSMENT: Functional assessment: no impairments noted. LEARNING NEEDS ASSESSMENT: The learning needs assessment revealed no barriers. --12:17 Alda Hinkle R.N. PROBLEMS: Hypertension. Back Pain. --12:16 Alda Hinkle R.N. Polycystic Kidney. Hypercalcemia. --12:17 Alda Hinkle R.N. Interventions ID band on patient. Transported via wheelchair. --12:17 Alda Hinkle R.N. PHYSICAL ASSESSMENT Ambulatory to room. GENERAL / NEURO / PSYCH: Alert. Appears in no acute distress. HEENT: Mucous membranes are pink. RESPIRATORY: Respirations not labored. CVS: Capillary refill less than 2 seconds. GI / : Abdomen soft. Abdominal tenderness in the lower abdomen. SKIN: Skin is warm and dry. --12:17 Alda Hinkle R.N. NURSING PROGRESS NOTES Patient gowned. Head of bed elevated. Two patient identifiers checked. Call light placed in reach. Side rails up x 2. Bed placed in lowest position. Brakes of bed on. Patient ready for evaluation- chart flagged. --12:17 Alda Hinkle R.N. Patient ID band checked for patient name, birthdate and medical record number: patient confirmed. Instructions provided to collect clean catch urine and patient verbalized understanding. Clean catch urine collected with return of yellow-colored clear urine; sample sent to lab for urinalysis. Specimen labeled in the presence of the patient. --12:17 Alda Hinkle R.N. 12:41 01/10/2017 Zofran ODT (Ondansetron) PO 4 mg given. Allergies verified and confirmed 5 rights. --12:41 Alda Hinkle R.N. 13:14 01/10/17. ( Ultrasound at bedside). --13:14 Shea Nichols R.N. 14:32 01/10/2017 Zofran ODT (Ondansetron) PO 4 mg given. Allergies verified and confirmed 5 rights. --14:32 Nena-Elif Nichols R.N. ( pt out in waiting room, s/o standing at doorway- zofran odt brought to pt "I need to go eat to take my pain meds"). --14:33 Elif Vidal R.N. DISPOSITION / DISCHARGE 14:35 01/10/17. RR: 16. Additional comments: d/c v/s deferred due to pt. refused and wanting to "leave now.". --14:38 Alda Hinkle R.N. 14:35. Departure time: 1435. Condition at departure: stable. No learning barriers present. Discharge instructions provided and reviewed with the patient. Reviewed medication(s) side effects, precautions, dosing and course information. Prescription(s) given to the patient. Reviewed referral to family practice for followup. Patient verbalized understanding. Written instructions provided in Amharic. The patient was discharged home and accompanied by welder/fitter. She left the Emergency Department ambulatory and via private vehicle. Banking Representative driving. Medication list reviewed and validated. --14:38 Alda Hinkle R.N. Locked/Released at 01/10/2017 14:38 by Alda Hinkle R.N.
--- NOTE | 2017-01-10 14:31 | ED CLINICAL REPORT ---
Clinical Report - Physicians/Mid Levels [facility] [address] [place] [address] 01/10/2017 12:00 Patient: JESENIA KELLOGG Time Seen: 1220. Arrived- By private vehicle. Historian- patient. HISTORY OF PRESENT ILLNESS Chief Complaint: VOMITING. This started just prior to arrival started about an hour and a half ago, nausea, with right upper quad pain and is still present. It was abrupt in onset. The patient has had nausea, mild vomiting. The vomiting has occurred only once and mild, colicky abdominal pain. No diarrhea, black stools or bloody stools. The illness is described as mild. Similar symptoms previously: None. Recent medical care: Not recently seen/assessed. REVIEW OF SYSTEMS No fever, difficulty with urination or dark urine. All systems otherwise negative, except as recorded above. PAST HISTORY See nurses notes. Problems: Polycystic Kidney. Hypercalcemia. Hypertension. Back Pain. None. Medications: Percocet Oral, as needed. Vitamin D Oral. Lisinopril Oral 5 mg, at bedtime. Allergies: No Known Drug Allergy. FAMILY HISTORY Negative. ADDITIONAL NOTES The nursing notes have been reviewed with agreement regarding the chief complaint, HPI, ROS, PMH and patient medications and allergies. PHYSICAL EXAM Vital Signs: 01/10/2017 12:06 BP: 192/87. HR: 54. RR: 18. O2 saturation: 97%. Temp: 97.5 F. Have been reviewed. Hypertensive. Appearance: Alert. Oriented X3. No acute distress. Anxious. Appears to be in pain. Eyes: Pupils equal, round and reactive to light. Eyes normal inspection. ENT: Ears normal. Nose normal. Pharynx normal. Neck: Normal inspection. Neck supple. CVS: Normal heart rate and rhythm. Heart sounds normal. Pulses normal. Respiratory: No respiratory distress. Breath sounds normal. Abdomen: Soft. Mild tenderness in the right upper quadrant and right side of the abdomen with guarding present. Positive Bond's sign. No rebound tenderness or obturator or psoas sign present. The bowel sounds are not abnormal. No distention, mass present or organomegaly. Back: Normal inspection. Skin: Skin warm and dry. Normal skin color. No rash. Normal skin turgor. Extremities: No lower extremity edema. Neuro: Oriented X 3. LABS, X-RAYS, AND EKG Abdominal Sonogram: (Name: Jesenia Kellogg : 1960 MR#: [id number] Ordering Provider: ALESSANDRO HALE Exam(s): US ABDOMEN ULTRASOUND-COMPLETE Date of Exam: 01/10/2017 __ PROCEDURE: US ABDOMEN ULTRASOUND-COMPLETE INDICATION: Right abdominal and flank pain. History of polycystic kidney disease. TECHNIQUE: Zarco scale and color Doppler sonographic images of the abdomen were obtained. COMPARISON: Comparison is made to CT abdomen and pelvis on 11/11/2016. FINDINGS: There are multiple small adherent cholesterol polyps of the gallbladder (3 mm). No evidence of mobile gallstones. Common duct is normal (5 mm). Kidneys are large size right 14.0 cm, left 16.4 cm) with multiple cysts (largest right 5.4 cm, largest left 2.8 cm). There are multiple hepatic cysts (largest 3 cm). Spleen (8 cm), pancreas, aorta, and inferior vena cava are normal. IMPRESSION: 1. Multiple adherent cholesterol polyp of the gallbladder. No evidence of mobile gallstones. 2. Enlargement the kidneys secondary to a polycystic kidney disease. No definite evidence of urinary tract obstruction. 4. Associated multiple hepatic cysts. 5. Otherwise negative abdominal ultrasound. 6. Findings discussed with ANGI Davis. Electronically Final signed by:Trent Donahue MD 01/10/2017 3:56:29 PM Technologist: VINITA). The study was independently viewed by me, interpreted by the radiologist and discussed with the radiologist. Laboratory Tests: UA-Culture if indicated: (VICTOR MANUEL: 01/10/2017 12:15) ( [facility] [place] 01/10/[place] 13:06) Final results Test Result Flag Units (Reference) URINE COLOR YELLOW URINE APPEARANCE CLEAR URINE GLUCOSE NEGATIVE (NEGATIVE) URINE BILIRUBIN NEGATIVE (NEGATIVE) URINE KETONE NEGATIVE (NEGATIVE) URINE SPECIFIC GRAVITY 1.025 (1.010-1.030) URINE PH 5.0 (5.0-8.0) URINE PROTEIN NEGATIVE (NEGATIVE) URINE UROBILINOGEN 0.2 EU/dL (0.2-1.0) URINE NITRITE NEGATIVE (NEGATIVE) URINE BLOOD 3+ (NEGATIVE) URINE LEUK ESTERASE NEGATIVE (NEGATIVE) URINE RBC 50-75 rbc/hpf (0-1) URINE WBC 1-3 wbc/hpf (0-1) URINE EPITHELIAL CELLS 0-1 EPI/hpf (0-5) URINE BACTERIA TRACE (<1+) (NONE SEEN) URINE COMMENT CULT NOT INDICATED 1+ MUCOUS0-1 HYALINE CASTS/LPFURINE CULTURES ARE SET-UP BASED ON THE FOLLOWING CRITERIA:POSITIVE NITRITEPOSITIVE LEUKOCYTE ESTERASEGREATER THAN 10 WHITE BLOOD CELLSMODERATE (2+) OR GREATER BACTERIA CBC w Diff: (VICTOR MANUEL: 01/10/2017 12:45) ( [facility] 01/10/2017 12:51) Final results Test Result Flag Units (Reference) WHITE BLOOD COUNT 9.6 K/uL (4.5-11.5) RED BLOOD COUNT 5.31 H M/uL (4.00-5.20) HEMOGLOBIN 14.4 gm/dL (12.0-16.0) HEMATOCRIT 44.0 % (36.0-46.0) MEAN CELL VOLUME 83 fL (80-100) MEAN CORPUSCULAR HGB 27 pg (26-34) MEAN CORPUSCULAR HGB CONC 33 g/dL (31-37) RED CELL DISTRIBUTION WIDTH 13.4 % (11.6-14.8) PLATELET COUNT 282 K/uL (150-400) NEUTROPHIL % 74.0 % (50-75) LYMPH % 19.0 L % (25-40) MONO % 5.5 % (3-14) EOSINOPHIL % 1.2 % (0-4) BASOPHIL % 0.3 % (0-2) CMP: (VICTOR MANUEL: 01/10/2017 12:45) ( MsgRcvd 01/10/2017 13:16) Final results Test Result Flag Units (Reference) GLUCOSE 113 H mg/dL (70-110) BUN 13 mg/dL (7-18) CREATININE 0.9 mg/dL (0.6-1.3) Estimated GFR >60 mL/min Estimated GFR- >60 mL/min Note: Persistent reduction over 3 months in eGFR<60 mL/min/1.73 m2 defines CKD. Patients with eGFR values>=60 mL/min/1.73 m2 may also have CKD if evidence ofpersistent proteinuria. Additional information may be foundat www.kidney.org. SODIUM 140 mmol/L (136-145) POTASSIUM 3.8 mmol/L (3.5-5.1) CHLORIDE 103 mmol/L (98-107) CARBON DIOXIDE 28 mmol/L (21-32) CALCIUM 9.8 mg/dL (8.5-10.1) TOTAL PROTEIN 7.3 g/dL (6.4-8.2) ALBUMIN 3.9 g/dL (3.3-5.0) BILIRUBIN, TOTAL 0.3 mg/dL (0.0-1.0) ALKALINE PHOSPHATASE 64 U/L (46-116) AST (SGOT) 14 L U/L (15-37) ALT (SGPT) 24 U/L (12-78) LIPASE 107 U/L (73-393) AMYLASE 43 U/L (25-115) . PROGRESS AND PROCEDURES Course of Care: Patient is stable. Physical exam findings are improved. Symptoms better. CLINICAL IMPRESSION Subacute rotavirus gastroenteritis. No volume depletion. (polycystic kidney disease, with microscopic hematuria). (gallbladder polyp present on ultrasound). INSTRUCTIONS Rest. Take clear liquids only today. Advance diet as tolerated. No alcohol. Do not smoke. Warnings: Further evaluation is necessary in order to conduct further tests. It is very important to follow up with a physician. GENERAL WARNINGS: Return or contact your physician immediately if your condition worsens or changes unexpectedly, if not improving as expected, or if other problems arise. Your Current Medications: CONTINUE TAKING THE FOLLOWING MEDICATIONS: Lisinopril Oral : 5 mg at bedtime. Percocet Oral : prn. Vitamin D Oral. Prescription Medications: Zofran (orally disintegrating tablets) 4 mg: take 1 orally every 6 hours as needed for nausea. Dispense ten (10). No refill. Follow-up: Follow up with your doctor Wednesday if not better. Reason for referral: right upper quadrant pain, polycystic kidney disease, hematuria. Follow up with a seal extrusion operator- as recommended by your primary care physician- if not better. Understanding of the discharge instructions verbalized by patient and family. (Electronically signed by Alessandro Hale PA-C 01/10/2017 20:43)
--- NOTE | 2017-01-10 16:00 | DIAGNOSTIC IMAGING REPORT ---
PROCEDURE: US ABDOMEN ULTRASOUND-COMPLETE INDICATION: Right abdominal and flank pain. History of polycystic kidney disease. TECHNIQUE: Zarco scale and color Doppler sonographic images of the abdomen were obtained. COMPARISON: Comparison is made to CT abdomen and pelvis on 11/11/2016. FINDINGS: There are multiple small adherent cholesterol polyps of the gallbladder (3 mm). No evidence of mobile gallstones. Common duct is normal (5 mm). Kidneys are large size right 14.0 cm, left 16.4 cm) with multiple cysts (largest right 5.4 cm, largest left 2.8 cm). There are multiple hepatic cysts (largest 3 cm). Spleen (8 cm), pancreas, aorta, and inferior vena cava are normal. IMPRESSION: 1. Multiple adherent cholesterol polyp of the gallbladder. No evidence of mobile gallstones. 2. Enlargement the kidneys secondary to a polycystic kidney disease. No definite evidence of urinary tract obstruction. 4. Associated multiple hepatic cysts. 5. Otherwise negative abdominal ultrasound. 6. Findings discussed with ANGI Davis.
--- NOTE | 2017-01-10 20:43 | ED MED RECONCILIATION SUMMARY ---
Patient: JESENIA TRAORE Medication Reconciliation Report [facility] VisitID: [id number] [address] [place] [address] 56y, F Registration Date/Time: 01/10/2017 Weight: 63.5 kg Height/Length: 57 in. BMI: 30.3 ALLERGIES: No Known Drug Allergy The patient's Home Medications are listed below: CONTINUE TAKING THE FOLLOWING MEDICATIONS: Lisinopril Oral 5 mg, at bedtime Percocet Oral Vitamin D Oral The source(s) of the original Home Medication information: Not obtained. The following Medications were given to the patient in the Emergency Department: Zofran ODT [PO] PO 4 mg, administered: 01/10/2017 12:41:00 PM Zofran ODT [PO] PO 4 mg, administered: 01/10/2017 2:32:00 PM The following Medications were prescribed to the patient: Zofran (orally disintegrating tablets) 4 mg: take 1 orally every 6 hours as needed for nausea. Dispense ten (10). No refill. -- Yolie Us PA-C
--- NOTE | 2017-01-10 20:43 | ED MAR SUMMARY ---
..... Medication Administration Record [facility] [address] [place] [address] Patient: JESENIA TRAORE Visit ID: [id number] 56y, F Weight: 63.5 kg Height/Length: 57 in BMI: 30.3 ALLERGIES: No Known Drug Allergy Given 12:41 01/10/2017 Alda Hinkle RRobin Medication Administered: ZOFRAN ODT [PO] (ONDANSETRON), Dose: 4 mg PO. Medication Ordered: Zofran ODT PO 4 mg (NOW). Given 14:32 01/10/2017 Elif Vidal RRobin Medication Administered: ZOFRAN ODT [PO] (ONDANSETRON), Dose: 4 mg PO. Medication Ordered: Zofran ODT PO 4 mg (NOW).
--- NOTE | 2017-01-10 20:43 | ED DISCHARGE INSTRUCTIONS ---
Patient: JESENIA TRAORE General Instructions [facility] VisitID: [id number] [place] [address] 56y, F Registration Date/Time: 01/10/2017 Subacute rotavirus gastroenteritis. No volume depletion. (polycystic kidney disease, with microscopic hematuria). (gallbladder polyp present on ultrasound). INSTRUCTIONS Rest. Take clear liquids only today. Advance diet as tolerated. No alcohol. Do not smoke. Warnings: Further evaluation is necessary in order to conduct further tests. It is very important to follow up with a physician. GENERAL WARNINGS: Return or contact your physician immediately if your condition worsens or changes unexpectedly, if not improving as expected, or if other problems arise. Your Current Medications: CONTINUE TAKING THE FOLLOWING MEDICATIONS: Lisinopril Oral : 5 mg at bedtime. Percocet Oral : prn. Vitamin D Oral. Prescription Medications: Zofran (orally disintegrating tablets) 4 mg: take 1 orally every 6 hours as needed for nausea. Dispense ten (10). No refill. Follow-up: Follow up with your doctor Wednesday if not better. Reason for referral: right upper quadrant pain, polycystic kidney disease, hematuria. Follow up with a soup person- as recommended by your primary care physician- if not better. Understanding of the discharge instructions verbalized by patient and family. Rest. (Electronically signed by Yolie Us PA-C 01/10/2017 20:43)
--- NOTE | 2017-01-10 20:43 | ED MAR SUMMARY ---
..... Medication Administration Record [facility] [address] [place] [address] Patient: JESENIA TRAORE Visit ID: [id number] 56y, F Weight: 63.5 kg Height/Length: 57 in BMI: 30.3 ALLERGIES: No Known Drug Allergy Given 12:41 01/10/2017 Alda Hinkle RRobin Medication Administered: ZOFRAN ODT [PO] (ONDANSETRON), Dose: 4 mg PO. Medication Ordered: Zofran ODT PO 4 mg (NOW). Given 14:32 01/10/2017 Elif Vidal RRobin Medication Administered: ZOFRAN ODT [PO] (ONDANSETRON), Dose: 4 mg PO. Medication Ordered: Zofran ODT PO 4 mg (NOW).
--- NOTE | 2017-01-10 20:43 | ED DISCHARGE INSTRUCTIONS ---
Patient: JESENIA TRAORE General Instructions [facility] VisitID: [id number] [place] [address] 56y, F Registration Date/Time: 01/10/2017 Subacute rotavirus gastroenteritis. No volume depletion. (polycystic kidney disease, with microscopic hematuria). (gallbladder polyp present on ultrasound). INSTRUCTIONS Rest. Take clear liquids only today. Advance diet as tolerated. No alcohol. Do not smoke. Warnings: Further evaluation is necessary in order to conduct further tests. It is very important to follow up with a physician. GENERAL WARNINGS: Return or contact your physician immediately if your condition worsens or changes unexpectedly, if not improving as expected, or if other problems arise. Your Current Medications: CONTINUE TAKING THE FOLLOWING MEDICATIONS: Lisinopril Oral : 5 mg at bedtime. Percocet Oral : prn. Vitamin D Oral. Prescription Medications: Zofran (orally disintegrating tablets) 4 mg: take 1 orally every 6 hours as needed for nausea. Dispense ten (10). No refill. Follow-up: Follow up with your doctor Wednesday if not better. Reason for referral: right upper quadrant pain, polycystic kidney disease, hematuria. Follow up with a butcher helper- as recommended by your primary care physician- if not better. Understanding of the discharge instructions verbalized by patient and family. Rest. (Electronically signed by Yolie Us PA-C 01/10/2017 20:43)
--- NOTE | 2017-01-10 20:43 | ED MED RECONCILIATION SUMMARY ---
Patient: JESENIA TRAORE Medication Reconciliation Report [facility] VisitID: [id number] [address] [place] [address] 56y, F Registration Date/Time: 01/10/2017 Weight: 63.5 kg Height/Length: 57 in. BMI: 30.3 ALLERGIES: No Known Drug Allergy The patient's Home Medications are listed below: CONTINUE TAKING THE FOLLOWING MEDICATIONS: Lisinopril Oral 5 mg, at bedtime Percocet Oral Vitamin D Oral The source(s) of the original Home Medication information: Not obtained. The following Medications were given to the patient in the Emergency Department: Zofran ODT [PO] PO 4 mg, administered: 01/10/2017 12:41:00 PM Zofran ODT [PO] PO 4 mg, administered: 01/10/2017 2:32:00 PM The following Medications were prescribed to the patient: Zofran (orally disintegrating tablets) 4 mg: take 1 orally every 6 hours as needed for nausea. Dispense ten (10). No refill. -- Yolie Us PA-C
== END 2017-01-10 14:35 | disposition home or self-care (01) ==
LOC: ED SRH 11:59
DX: A08.0 Rotaviral enteritis (principal); Q61.2 Polycystic kidney, adult type; K82.4 Cholesterolosis of gallbladder; I10 Essential (primary) hypertension; Z79.899 Other long term (current) drug therapy; Z79.891 Long term (current) use of opiate analgesic; Z79.1 Long term (current) use of non-steroidal anti-inflammatories (NSAID)
CPT/HCPCS: 90004; 90074; 90100; 92235; 92530; 95059